=== PATIENT | female | born 1995 | race Caucasian/White ===

== ENCOUNTER 2022-05-11 22:30 | Emergency (ER) | payer MEDICAID ==
[~2022-05-11] VITALS: Ht 160 cm; Wt 65.5 kg
[2022-05-11 22:58] VITALS: BP 128/86
[2022-05-12] MEDS ORDERED: BACITRACIN ZINC OINT UDPKT TOP ONE
[2022-05-12] MEDS ORDERED: SILVER SULFADIAZINE 1% CREAM 25GM TOP NR (01:00)
[2022-05-12] MEDS ORDERED: SILV50CR31 TP (01:02)
[2022-05-12] MEDS ORDERED: IBUP-2029 PO (01:02)
[2022-05-12] MEDS ORDERED: BACITRACIN ZINC OINT UDPKT TOP NR (02:15)
== END 2022-05-12 02:19 | disposition home or self-care (01) ==
LOC: ER 22:30
DX: T21.11XA Burn of first degree of chest wall, initial encounter (principal); T31.0 Burns involving less than 10% of body surface; T79.9XXA Unspecified early complication of trauma, initial encounter
CPT/HCPCS: 99283

== ENCOUNTER 2022-08-22 18:55 | Emergency (ER) | payer MEDICAID ==
[~2022-08-22 18:55] MED LIST: IBUP-2029 PO; SILV50CR31 TP
== END 2022-08-22 20:53 | disposition left against medical advice (07) ==
LOC: ER 18:55
DX: Z53.21 Procedure and treatment not carried out due to patient leaving prior to being seen by health care provider (principal)

== ENCOUNTER 2022-11-04 23:20 | Emergency (ER) | payer MEDICAID ==
[~2022-11-04] VITALS: Ht 165.1 cm; Wt 64.0 kg
[2022-11-04 23:30] VITALS: BP 114/59
[2022-11-05] MEDS ORDERED: IBUPROFEN 600MG TABLET PO STA (00:37)
[2022-11-05] MEDS ORDERED: IBUP-2029 MT (02:07)
== END 2022-11-05 02:47 | disposition home or self-care (01) ==
LOC: ER 23:20
DX: S00.81XA Abrasion of other part of head, initial encounter (principal); Y04.0XXA Assault by unarmed brawl or fight, initial encounter; Y93.89 Activity, other specified; Y92.831 Amusement park as the place of occurrence of the external cause; Y99.8 Other external cause status
CPT/HCPCS: 99284